=== PATIENT | male | born 1980 | race Caucasian/White ===

== ENCOUNTER 2018-03-05 08:05 | Emergency (ER) | payer SELFPAY ==
[~2018-03-05] VITALS: Ht 175.3 cm; Wt 100.2 kg
[2018-03-05 08:09] VITALS: BP 108/69
== END 2018-03-05 09:42 | disposition home or self-care (01) ==
LOC: ED 08:32
DX: G56.03 Carpal tunnel syndrome, bilateral upper limbs (principal); F17.210 Nicotine dependence, cigarettes, uncomplicated
CPT/HCPCS: 99283